=== PATIENT | female | born 1990 | race American Indian/Alaskan Native ===

== ENCOUNTER 2022-04-03 07:03 | Day surgery (SDC) | payer OTHER ==
[~2022-04-03 07:03] MED LIST: ACETAMINOPHEN 500 MG TAB PO SCH; CELECOXIB 200 MG CAP PO NR; LACTATED RINGERS 1,000 ML IV SCH; MIDAZOLAM 2 MG/2 ML INJ IV NR; SCOPOLAMINE TRANSDERMAL PATCH 72 HR TD NR
--- NOTE | 2022-04-03 07:50 | Short Stay Summary ---
Short Stay Documentation Date of service: 04/03/22 Narrative H&P: 31y/o with findings of an endometrial polyp on endometrial biopsy. The patient has been experiencing profound abnormal vaginal bleeding that has been unresponsive to medical management. - History Principal diagnosis: Endometrial polyp Past Medical History: hypertension, other (depression) Past Surgical History: No surgical history Social history: single - Allergies and Medications Current Medications: Allergies No Known Allergies Allergy (Unverified 03/27/22 11:30) Home Medications Medication Instructions Recorded Confirmed Last Taken Type Amlodipine Besylate/Valsartan 1 each PO DAILY 03/27/22 03/27/22 Unknown History [Amlodipine-Valsartan 10-320 mg] Multi-Vitamin Iv Drip 1 bag IV 1XW 03/27/22 Unknown History QUEtiapine [SEROquel] 100 mg PO QDAY 03/27/22 03/27/22 Unknown History Sertraline [Zoloft] 50 mg PO QDAY 03/27/22 03/27/22 Unknown History buPROPion XL [Wellbutrin Xl] 150 mg PO QAM 03/27/22 03/27/22 Unknown History Active Medications Acetaminophen (Acetaminophen 500 Mg Tab) 1,000 mg PO PREOP FRANNY Stop: 04/03/22 23:59 Celecoxib (Celecoxib 200 Mg Cap) 200 mg PO PREOP NR Stop: 04/03/22 23:59 Lactated Ringer's (Lactated Ringers) 1,000 mls @ 100 mls/hr IV DIRECT FRANNY Stop: 04/03/22 23:59 Midazolam HCl (Midazolam 2 Mg/2 Ml Inj) 2 mg IV PREOP NR Stop: 04/03/22 23:59 Scopolamine (Scopolamine Transdermal Patch 72 Hr) 1 each TD PREOP NR Stop: 04/03/22 23:59 - Physical exam General appearance: no acute distress Integumentary: no rash HEENT: Atraumatic Lungs: Clear to auscultation Breasts: deferred Heart: Regular rate Gastrointestinal: normal Female Genitourinary: deferred Rectal Exam: deferred - Brief post op/procedure progress note Date of procedure: 04/03/22 Pre-op diagnosis: Dysfunctional uterine bleeding Post-op diagnosis: same Procedure: Hysteroscopy Dilatation and curettage Endometrial ablation via NovaSure Anesthesia: GETA Surgeon: BIANCA L ST GO Estimated blood loss: minimal Pathology: list (Endometrial curettings) Specimen disposition: to lab Condition: stable - Hospital course Hospital course: The patient was admitted the day of surgery and underwent a hysteroscopy and endometrial ablation. Please see operative note for details of surgery. Her postoperative course was uneventful. - Disposition Condition at discharge: Good Disposition: 01 HOME / SELF CARE / HOMELESS Short Stay Discharge Plan Activity: other (Pelvic rest for 1 week) Diet: regular Additional Instructions: Schedule follow-up with Dr. Plata in 4 weeks
--- NOTE | 2022-04-03 08:11 | Anesthesia Consultation ---
Anesthesia Consult and Med Hx Date of service: 04/03/22 - Airway Anesthetic Teeth Evaluation: Good ROM Head & Neck: Adequate Mental/Hyoid Distance: Adequate Mallampati Class: Class III Intubation Access Assessment: Possibly Difficult - Pre-Operative Health Status ASA Pre-Surgery Classification: ASA3 Proposed Anesthetic Plan: General - Pulmonary Hx Smoking: Yes (3 cigs/day) Hx Respiratory Symptoms: No - Cardiovascular System Hx Hypertension: Yes (took antihypertensive this morning) - Central Nervous System Hx Seizures: No Hx Back Pain: Yes Hx Psychiatric Problems: Yes (anxiety/depression) - Endocrine Hx Renal Disease: No Hx Liver Disease: No Hx Insulin Dependent Diabetes: No Hx Non-Insulin Dependent Diabetes: No Hx Thyroid Disease: No - Other Systems Hx Obesity: Yes (BMI 40) - Additional Comments Anesthesia Medical History Comments: No prior anesthetics. No FHx anesthetic complications.
--- NOTE | 2022-04-03 08:11 | Anesthesia Day of Surgery ---
Anesthesia Day of Surgery - Day of Surgery Patient Examined: Yes Patient H&P Reviewed: Yes Patient is NPO: Yes
[2022-04-03] MEDS ORDERED: dexAMETHasone 20 MG/5 ML VIAL ONE (09:06)
[2022-04-03] MEDS ORDERED: LIDOCAINE MPF (2%) 20 MG/1 ML VIAL 5 ML ONE (09:06)
[2022-04-03] MEDS ORDERED: ONDANSETRON 4 MG/2 ML INJ ONE (09:06)
[2022-04-03] MEDS ORDERED: fentaNYL 100 MCG/2 ML INJ ONE (09:07)
[2022-04-03] MEDS ORDERED: propofoL 200 MG/20 ML VIAL IV ONE ×3 (09:07→09:39)
[2022-04-03] MEDS ORDERED: ePHEDrine SULFATE 50 MG/1 ML INJ ONE (09:36)
[2022-04-03 09:37] LABS: Hematocrit 40.1 % (30.3-42.9); Mean Corpuscular HGB Conc 32 % (30-34); Mean Corpuscular Volume 91 fl (79-97); Platelet Count 273 K/mm3 (140-440); Red Blood Count 4.42 M/mm3 (3.65-5.03); Red Cell Distribution Width 15.1 % (13.2-15.2)
--- NOTE | 2022-04-03 10:09 | Operative Report ---
Operative Report Operative Report: Date of procedure: April 03, 2022 Pre-operative diagnosis: Dysfunctional uterine bleeding; endometrial polyp Post-operative diagnosis: Same as above Procedure name(s): Hysteroscopy; dilatation and curettage; endometrial ablation via NovaSure Surgeon: Leesa Ward M.D. Foreign Law Consultant: None Anesthesia: LMA Findings thickened endometrial lining no evidence of an obvious endometrial polyp Indication: 31-year-old -0-4-0 with a history of dysfunctional uterine bleeding. The patient had endometrial biopsy that was suggestive of endometrial polyp. Procedure The patient was taken to the operating room and given general tracheal anesthesia without complication. The patient was prepped and draped in a normal sterile fashion. A bivalve speculum was placed in the patient's vagina single- tooth tenaculums placed on the anterior lip of the cervix. The cervical os was dilated with graduated dilators. A uterine sound was inserted. The hysteroscope was then placed. Insufflation of the uterine cavity was performed with normal saline. Gen. survey of the uterine cavity revealed significantly thickened endometrial lining no obvious polyps could be identified. The hysteroscope was then removed. A sharp curettage of the endometrial surface was performed. The NovaSure device was then inserted. The endometrial length was 5.5 cm and the uterine width was 3.0 cm. The device was engaged and it passed the surveillance of the uterine cavity. The NovaSure device was then deployed with a energy of 91 W that lasted for 1 minute 11 seconds. The NovaSure device was then removed. The hysteroscope was again reinserted. There was evidence of charring of the endometrial surface. The remainder of the vaginal instruments were then removed atraumatically. The patient was then successfully extubated taken to the recovery room. All sponge laps and needle counts were correct 2.
[2022-04-03] MEDS ORDERED: SODIUM CHLORIDE 0.9% IRRIG SOLN 3000 ML IR ONE (10:11)
[2022-04-03] MEDS ORDERED: HYDROmorphone 0.5 MG/0.5 ML INJ ONE (10:36)
[2022-04-03] MEDS ORDERED: hydrALAZINE 20 MG/1 ML INJ IV ONE (10:55)
[2022-04-03] MEDS ORDERED: hydrALAZINE 20 MG/1 ML INJ ONE (10:58)
[2022-04-03] MEDS ORDERED: ONDANSETRON 4 MG/2 ML INJ IV PRN (11:00)
[2022-04-03] MEDS ORDERED: HYDROmorphone 0.5 MG/0.5 ML INJ IV PRN ×2 (11:00)
--- NOTE | 2022-04-03 13:52 | Post Anesthesia Evaluation ---
- Post Anesthesia Evaluation Patient Participated: Yes Airway Patent: Yes Stable Respiratory Function: Yes Nausea/Vomiting: No Temp > 96.8F: Yes Pain Manageable: Yes Adequeate Hydration: Yes Anesthesia Complications: No
[2022-04-03 14:30] VITALS: BP 140/90
== END 2022-04-03 12:20 | disposition home or self-care (01) ==
LOC: OR 07:03
PROVIDERS: ATTEND Obstetrics & Gynecology
DX: N93.8 Other specified abnormal uterine and vaginal bleeding (principal); N92.0 Excessive and frequent menstruation with regular cycle; N84.0 Polyp of corpus uteri; I10 Essential (primary) hypertension; E66.9 Obesity, unspecified; F31.9 Bipolar disorder, unspecified; F41.9 Anxiety disorder, unspecified; D64.9 Anemia, unspecified; F17.210 Nicotine dependence, cigarettes, uncomplicated; Z79.899 Other long term (current) drug therapy; Z87.440 Personal history of urinary (tract) infections; Z98.890 Other specified postprocedural states; Z68.41 Body mass index [BMI] 40.0-44.9, adult
CPT/HCPCS: 36415; 58563; 81025; 82962; 85027; 88305; J0360; J1100; J1170; J2250; J2405; J2704; J3010; J3490; J7120